=== PATIENT | female | born 1955 | race Caucasian/White ===

== ENCOUNTER → 2017-08-30 | Outpatient (CLI) | payer BC | LOC: MAMMO 13:11 | DX: Z12.31 Encounter for screening mammogram for malignant neoplasm of breast (principal); N63.20 Unspecified lump in the left breast, unspecified quadrant ==

== ENCOUNTER → 2017-09-07 | Outpatient (CLI) | payer BC | LOC: MAMMO 09:25 | DX: N63.20 Unspecified lump in the left breast, unspecified quadrant (principal); N60.02 Solitary cyst of left breast ==

== ENCOUNTER → 2018-09-12 | Outpatient (CLI) | payer BC | LOC: MAMMO 13:36 | DX: Z12.31 Encounter for screening mammogram for malignant neoplasm of breast (principal) ==

== ENCOUNTER → 2020-03-10 | Outpatient (CLI) | payer BC | LOC: MAMMO 12:47 | DX: Z12.31 Encounter for screening mammogram for malignant neoplasm of breast (principal) ==

== ENCOUNTER → 2021-07-07 | Outpatient (CLI) | payer BC | LOC: MAMMO 13:42 | DX: Z12.31 Encounter for screening mammogram for malignant neoplasm of breast (principal) ==

== ENCOUNTER 2021-09-03 15:16 | Emergency (ER) | payer BC ==
[~2021-09-03] VITALS: Ht 157.5 cm; Wt 61.4 kg
[2021-09-03] MEDS ORDERED: SINGULAIR 110 MG/TAB PO (15:30)
[2021-09-03] MEDS ORDERED: LOSARTAN POTAS100 MG PO (15:30)
[2021-09-03] MEDS ORDERED: ESCITALOPRAM20 MG PO (15:30)
[2021-09-03 15:41] LABS: BASO # 0.02 K/mm3 (0.02-0.10); EOS # 0.02 K/mm3 (0.04-0.40); EOS % 0.1 % (1.0-5.0); HEMATOCRIT 45.1 % (37.0-47.0); HEMOGLOBIN 14.9 g/dL (12.5-16.0); LYMPH# 2.12 K/mm3 (1.50-4.00); MEAN CELL VOLUME 89 fl (78-100); MEAN CORPUSCULAR HEMOGLOBIN 30 pg (27-31); MEAN CORPUSCULAR HGB CONC 33 g/dL (33-37); MEAN PLATELET VOLUME 10.3 fl (7.4-10.4); NEU # 15.46 K/mm3 (1.40-6.50); PLATELET COUNT 294 K/mm3 (130-400); RED BLOOD COUNT 5.05 M/mm3 (4.10-5.30); RED CELL DISTRIBUTION WIDTH 13.7 % (11.5-14.5); WHITE BLOOD COUNT 18.8 K/mm3 (4.8-10.8)
[2021-09-03 15:50] LABS: POTASSIUM 3.6 mmol/L (3.5-5.1)
[2021-09-03 15:51] LABS: CALCIUM 9.3 mg/dL (8.3-10.5)
[2021-09-03 15:53] LABS: TOTAL PROTEIN 6.9 g/dL (6.2-8.1)
[2021-09-03 15:54] LABS: TOTAL BILIRUBIN 0.8 mg/dL (0.2-1.2)
[2021-09-03 16:06] LABS: URINE APPEARANCE HAZY; URINE BILIRUBIN 1+ (NEGATIVE); URINE BLOOD TRACE (NEGATIVE); URINE COLOR YELLOW; URINE GLUCOSE NEGATIVE (NEGATIVE); URINE KETONE 1+ (NEGATIVE); URINE LEUKOCYTE ESTERASE 1+ (NEGATIVE); URINE NITRATE NEGATIVE (NEGATIVE); URINE PROTEIN(semi-quant) 1+ (NEGATIVE); URINE UROBILINOGEN NORMAL (NORMAL)
[2021-09-03 16:07] LABS: URINE MUCUS PRESENT (NOT PRESENT)
[2021-09-03 16:55] VITALS: BP 127/75
== END 2021-09-03 16:40 | disposition short-term general hospital (02) ==
LOC: ED 15:16
PROVIDERS: Nurse Practitioner
DX: K37 Unspecified appendicitis (principal); F17.210 Nicotine dependence, cigarettes, uncomplicated
CPT/HCPCS: J2270; J2405; J7030; Q9967

== ENCOUNTER → 2022-03-16 | Day surgery (SDC) | payer BC ==
[~2022-03-16] MED LIST: ESCITALOPRAM20 MG PO; LOSARTAN POTAS100 MG PO; SINGULAIR 110 MG/TAB PO
== END | disposition home or self-care (01) ==
LOC: MSO 09:42
DX: H25.13 Age-related nuclear cataract, bilateral (principal); F17.210 Nicotine dependence, cigarettes, uncomplicated; Z79.899 Other long term (current) drug therapy
CPT/HCPCS: 00142; J0171; J2250; V2632

== ENCOUNTER → 2024-04-19 | Outpatient (CLI) | payer MEDICARE | LOC: MAMMO 07:54 | DX: Z12.31 Encounter for screening mammogram for malignant neoplasm of breast (principal) ==